=== PATIENT | female | born 2000 | race American Indian/Alaskan Native ===

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

== ENCOUNTER 2020-11-23 21:21 | Outpatient (CLI) | payer MEDICAID ==
[2020-11-23 22:03] VITALS: BP 134/86
[2020-11-23 22:19] LABS: Bacteria,Urine 1+ /HPF (Negative); Bilirubin,Urine NEG (Negative); Blood,Urine NEG (Negative); Color,Urine Yellow (Yellow); Mucus,Urine 1+ /HPF; Urobilinogen,Urine < 2.0 mg/dL (<2.0)
--- NOTE | 2020-11-24 00:02 | Ultrasound Report ---
ULTRASOUND OBSTETRIC LIMITED ULTRASOUND BIOPHYSICAL PROFILE INDICATION / CLINICAL INFORMATION: Evaluate well-being. Postdates with contractions. Clinical Gestational Age (GA) in weeks.days: 40.1 TECHNIQUE: Transabdominal. COMPARISON: None available. FINDINGS: NUMBER: Single PRESENTATION: cephalic PLACENTA: anterior and free of the os. MATERNAL ADNEXA: No significant abnormality. AMNIOTIC FLUID VOLUME: normal AMNIOTIC FLUID INDEX (EARL) in cm (if measured): 9.2 ANATOMY: Detailed anatomic evaluation was not performed. MEASUREMENTS: - Biparietal Diameter = 9.4 cm = 38.5 weeks.days - Head Circumference = 34.87 cm = 40.4 weeks.days - Abdominal Circumference = 34.83 cm = 38.5 weeks.days - Femur Length = 7.69 cm = 39.2 weeks.days - Estimated Weight (in grams, if calculated): 3674 - Heart Rate (beats per minute): 131 ADDITIONAL FINDINGS: None. PERCENTILE ESTIMATED WEIGHT (if calculated): 53 AVERAGE ULTRASOUND AGE (AUA) in weeks.days = 39.2 BREATHING MOVEMENT = 2 GROSS BODY MOVEMENT = 2 TONE = 2 QUALITATIVE AMNIOTIC FLUID VOLUME = 2 TOTAL BIOPHYSICAL SCORE = 8/8 IMPRESSION: 1. Single intrauterine with AUA of 39.2 weeks.days 2. Biophysical profile score of 8/8. Signer Name: Carl Walker MD Signed: 11/23/2020 11:58 PM Workstation Name: [email or web address]
== END 2020-11-24 00:42 | disposition home or self-care (01) ==
LOC: TRG 21:21 → APU 21:27 → TRG 11-24 00:42
PROVIDERS: ATTEND Obstetrics & Gynecology
DX: Z34.93 Encounter for supervision of normal pregnancy, unspecified, third trimester (principal); Z3A.40 40 weeks gestation of pregnancy
CPT/HCPCS: 59025; 76815; 76816; 76819; 81001

== ENCOUNTER 2020-12-01 20:02 | Inpatient (IN) | payer BC, MEDICAID ==
[2020-12-01 21:17] LABS: Hematocrit 32.8 % (30.3-42.9); Hemoglobin 11.3 gm/dl (10.1-14.3); Mean Corpuscular HGB Conc 35 % (30-34); Mean Corpuscular Volume 86 fl (79-97); Platelet Count 252 K/mm3 (140-440); Red Blood Count 3.82 M/mm3 (3.65-5.03); Red Cell Distribution Width 13.9 % (13.2-15.2)
[2020-12-01] MEDS ORDERED: ePHEDrine SULFATE 50 MG/1 ML INJ IV PRN (21:36)
[2020-12-01] MEDS ORDERED: NALOXONE 0.4 MG/1 ML INJ IV PRN (21:36)
[2020-12-01] MEDS ORDERED: ACETAMINOPHEN 325 MG TAB PO PRN (21:36)
[2020-12-01] MEDS ORDERED: CARBOPROST TROMETHAMINE 250 MCG/1 ML INJ IM PRN (21:36)
[2020-12-01] MEDS ORDERED: TERBUTALINE 1 MG/1 ML INJ SUB-Q PRN (21:36)
[2020-12-01] MEDS ORDERED: fentaNYL 100 MCG/2 ML INJ IV PRN (21:36)
[2020-12-01] MEDS ORDERED: LIDOCAINE (2%) 20 MG/1 ML VIAL 20 ML MDV INFILTRATI ONE (21:36)
[2020-12-01] MEDS ORDERED: miSOPROStol 200 MCG TAB PR PRN (21:36)
[2020-12-01] MEDS ORDERED: OXYTOCIN 10 UNIT/1 ML INJ IM PRN (21:36)
[2020-12-01] MEDS ORDERED: MINERAL OIL 30 ML ORAL LIQD PO PRN (21:36)
[2020-12-01] MEDS ORDERED: METHYLERGONOVINE MALEATE 0.2 MG/ML VIAL IM PRN (21:36)
[2020-12-01] MEDS ORDERED: LOPERAMIDE 2 MG CAP PO PRN (21:36)
[2020-12-01] MEDS ORDERED: BUTORPHANOL 2 MG/1 ML INJ IV PRN (21:36)
[2020-12-01] MEDS ORDERED: ONDANSETRON 4 MG/2 ML INJ IV PRN (21:36)
[2020-12-01] MEDS ORDERED: OXYTOCIN DRIP 30 UNITS/500 ML BAG IV SCH ×2 (22:00)
[2020-12-01] MEDS ORDERED: DINOPROSTONE 10 MG VAG SUPP VG ONE (22:08)
[2020-12-01] MEDS ORDERED: ZOLPIDEM 5 MG TAB PO PRN (22:12)
[2020-12-01] MEDS: LACTATED RINGERS 1,000 ML IV SCH (23:16)
[2020-12-02] MEDS: LACTATED RINGERS 1,000 ML IV SCH ×4 (04:27→20:37)
[2020-12-02] MEDS: BUTORPHANOL 2 MG/1 ML INJ IV PRN ×2 (07:52→12:53)
--- NOTE | 2020-12-02 08:55 | History and Physical Report ---
History of Present Illness Date of examination: 12/02/20 Date of admission: 12/01/20 20:02 Chief complaint: IOL secondary to post dates History of present illness: 20yo at 41.3 wks, initiated care at 11.2 wks gestation. 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 She presents to [facility] on 12/01/20 for IOL secondary to post- dates. Reports +FM. Denies VB or LOF. Labs: A+, antibody negative; rubella immune; VDRL non-reactive; urine culture negative; HBsAg negtive; HSV-2 negative; Gc/Chlamydia/Trich negative; 1hr gtt - 100; GBS negative. Past History Past Medical History: no pertinent history Past Surgical History: no surgical history [employer] History: chlamydia (12/2019) Family/Genetic History: cancer Social history: single, lives with family, full code. denies: smoking, alcohol abuse, prescription drug abuse, IV drug use - Obstetrical History Expected Date of Delivery: 12/02/20 Actual Gestation: 40 Week(s) 0 Day(s) : 2 Para: 0 Hx # Term Pregnancies: 0 Number of Pregnancies: 0 Spontaneous Abortions: 1 Induced : 0 Number of Living Children: 0 Medications and Allergies Allergies Allergy/AdvReac Type Severity Reaction Status Date / Time No Known Allergies Allergy Verified 08/14/16 06:05 Home Medications Medication Instructions Recorded Confirmed Last Taken Type Vitamin 1 tab PO DAILY 12/01/20 12/01/20 1 Month Ago History ~11/01/20 Active Meds: Active Medications Acetaminophen (Acetaminophen 325 Mg Tab) 650 mg PO Q4H PRN PRN Reason: Pain, Mild (1-3) Butorphanol Tartrate (Butorphanol 2 Mg/1 Ml Inj) 2 mg IV Q2H PRN PRN Reason: Pain , Severe (7-10) Last Admin: 12/02/20 07:52 Dose: 2 mg Documented by: Butorphanol Tartrate (Butorphanol 2 Mg/1 Ml Inj) 1 mg IV Q2H PRN PRN Reason: Pain, Moderate(4-6) LABOR PAIN Carboprost Tromethamine (Carboprost Tromethamine 250 Mcg/1 Ml Inj) 250 mcg IM ONCE PRN PRN Reason: Uterine Bleeding Ephedrine Sulfate (Ephedrine Sulfate 50 Mg/1 Ml Inj) 10 mg IV Q2M PRN PRN Reason: Hypotension Fentanyl (Fentanyl 100 Mcg/2 Ml Inj) 100 mcg IV Q2H PRN PRN Reason: Pain,Severe (7-10) LABOR PAIN Oxytocin/Sodium Chloride (Pitocin/Ns 30 Unit/500ml) 30 units in 500 mls @ 2 mls/hr IV TITR KWAKU; Protocol Lactated Ringer's (Lactated Ringers) 1,000 mls @ 125 mls/hr IV DIRECT KWAKU Last Admin: 12/02/20 08:33 Dose: 125 mls/hr Documented by: Oxytocin/Sodium Chloride (Pitocin/Ns 30 Unit/500ml) 30 units in 500 mls @ 40 mls/hr IV TITR KWAKU; Protocol Loperamide HCl (Loperamide 2 Mg Cap) 2 mg PO ONCE PRN PRN Reason: give with Hemabate Methylergonovine Maleate (Methylergonovine Maleate 0.2 Mg/Ml Vial) 0.2 mg IM ONCE PRN PRN Reason: Uterine Bleeding Mineral Oil (Mineral Oil 30 Ml Oral Liqd) 30 ml PO QHS PRN PRN Reason: Constipation Misoprostol (Misoprostol 200 Mcg Tab) 800 mcg IA ONCE PRN PRN Reason: Uterine Bleeding Naloxone HCl (Naloxone 0.4 Mg/1 Ml Inj) 0.1 mg IV Q2MIN PRN PRN Reason: Res Rate </= 8 or 02 SAT < 92% Ondansetron HCl (Ondansetron 4 Mg/2 Ml Inj) 4 mg IV Q8H PRN PRN Reason: Nausea And Vomiting Oxytocin (Oxytocin 10 Unit/1 Ml Inj) 10 unit IM ONCE PRN PRN Reason: Uterine Bleeding Terbutaline Sulfate (Terbutaline 1 Mg/1 Ml Inj) 0.25 mg SUB-Q ONCE PRN PRN Reason: Hyperstimulation/Hypertonicity Zolpidem Tartrate (Zolpidem 5 Mg Tab) 10 mg PO ONCE PRN PRN Reason: Insomnia Review of Systems All systems: negative - Vital Signs Vital signs: Vital Signs Temp Resp 99.9 F H 18 12/01/20 20:44 12/01/20 20:44 Temp Pulse Resp BP Pulse Ox 98.3 F 91 H 20 116/70 94 12/02/20 08:15 12/02/20 08:46 12/02/20 08:15 12/02/20 08:46 12/02/20 08:45 - Physical Exam Breasts: Positive: normal Cardiovascular: Regular rate Lungs: Positive: Normal air movement Abdomen: Positive: other (gravid) Genitourinary (Female): Positive: normal external genitalia, normal perenium Vagina: Positive: normal moisture Uterus: Positive: enlarged (S=D) Extremities: Positive: normal Deep Tendon Reflex Grade: Normal +2 - Obstetrical FHR: category 2 Uterine Contraction Monitor Mode: External Cervical Dilatation: 2 (vertex) Cervical Effacement Percentage: 60 station: -3 Uterine Contraction Frequency (min): 2-4 Uterine Tone Measurement Phase: Resting Uterine Contraction Intensity: Mild Results Result Diagrams: 12/01/20 20:20 Abnormal lab results 12/01/20 Range/Units 20:20 MCHC 35 H (30-34) % All other labs normal. Assessment and Plan - Patient Problems (1) Encounter for induction of labor Current Visit: Yes Status: Acute Plan to address problem: Cervidil removed at 0830 May eat/shower if desired Anticipate (2) Post-dates Current Visit: Yes Status: Acute
--- NOTE | 2020-12-02 14:14 | Progress Note ---
Assessment and Plan - Patient Problems (1) Encounter for induction of labor Current Visit: Yes Status: Acute Plan to address problem: Genao bulb was inserted at 0900, fell out at 0946 SROM @ 0957, clear fluids Continue Pitocin titration as tolerated Pain meds as desired Anticipate (2) Post-dates Current Visit: Yes Status: Acute Subjective - Subjective Date of service: 12/02/20 Principal diagnosis: IOL; postdates Interval history: 20yo at 41.3 wks, initiated care at 11.2 wks gestation. 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 She presents to [facility] on 12/01/20 for IOL secondary to post- dates. Reports +FM. Denies VB or LOF. Labs: A+, antibody negative; rubella immune; VDRL non-reactive; urine culture negative; HBsAg negtive; HSV-2 negative; Gc/Chlamydia/Trich negative; 1hr gtt - 100; GBS negative. Patient reports: loss of fluid (clear fluids), movement normal, contractions (getting painful), no vaginal bleeding Objective - Vital Signs Vital Signs: Vital Signs - 12hr 12/02/20 12/02/20 12/02/20 02:13 02:18 02:23 Temperature Pulse Rate 88 81 88 Respiratory Rate Blood Pressure O2 Sat by Pulse 97 96 98 Oximetry 12/02/20 12/02/20 12/02/20 02:28 02:33 02:38 Temperature Pulse Rate 89 86 88 Respiratory Rate Blood Pressure O2 Sat by Pulse 98 97 98 Oximetry 12/02/20 12/02/20 12/02/20 02:43 02:58 03:03 Temperature Pulse Rate 85 90 85 Respiratory Rate Blood Pressure O2 Sat by Pulse 100 100 99 Oximetry 12/02/20 12/02/20 12/02/20 03:08 03:13 03:18 Temperature Pulse Rate 84 84 84 Respiratory Rate Blood Pressure O2 Sat by Pulse 99 98 98 Oximetry 12/02/20 12/02/20 12/02/20 03:20 03:23 03:28 Temperature 97.9 F Pulse Rate 87 85 Respiratory Rate Blood Pressure O2 Sat by Pulse 98 97 Oximetry 12/02/20 12/02/20 12/02/20 03:33 03:38 03:43 Temperature Pulse Rate 88 89 92 H Respiratory Rate Blood Pressure O2 Sat by Pulse 97 97 97 Oximetry 12/02/20 12/02/20 12/02/20 03:48 03:53 03:58 Temperature Pulse Rate 86 90 88 Respiratory Rate Blood Pressure O2 Sat by Pulse 98 99 98 Oximetry 12/02/20 12/02/20 12/02/20 04:03 04:08 04:13 Temperature Pulse Rate 87 91 H 86 Respiratory Rate Blood Pressure O2 Sat by Pulse 99 98 97 Oximetry 12/02/20 12/02/20 12/02/20 04:18 04:23 04:32 Temperature Pulse Rate 86 92 H 97 H Respiratory Rate Blood Pressure O2 Sat by Pulse 97 98 96 Oximetry 12/02/20 12/02/20 12/02/20 04:35 04:37 04:42 Temperature Pulse Rate 88 85 87 Respiratory Rate Blood Pressure 120/61 O2 Sat by Pulse 96 96 Oximetry 12/02/20 12/02/20 12/02/20 04:47 04:52 04:57 Temperature Pulse Rate 88 85 85 Respiratory Rate Blood Pressure O2 Sat by Pulse 96 97 96 Oximetry 12/02/20 12/02/20 12/02/20 05:02 05:07 05:12 Temperature Pulse Rate 94 H 84 95 H Respiratory Rate Blood Pressure O2 Sat by Pulse 97 95 95 Oximetry 12/02/20 12/02/20 12/02/20 05:17 05:22 05:27 Temperature Pulse Rate 97 H 92 H 91 H Respiratory Rate Blood Pressure O2 Sat by Pulse 96 96 95 Oximetry 12/02/20 12/02/20 12/02/20 05:32 05:37 05:50 Temperature Pulse Rate 97 H 96 H 88 Respiratory Rate Blood Pressure O2 Sat by Pulse 97 96 97 Oximetry 12/02/20 12/02/20 12/02/20 05:55 06:00 06:05 Temperature Pulse Rate 89 90 92 H Respiratory Rate Blood Pressure O2 Sat by Pulse 98 98 98 Oximetry 12/02/20 12/02/20 12/02/20 06:10 06:15 06:25 Temperature Pulse Rate 93 H 96 H 93 H Respiratory Rate Blood Pressure O2 Sat by Pulse 98 98 97 Oximetry 12/02/20 12/02/20 12/02/20 06:30 06:35 06:40 Temperature Pulse Rate 90 93 H 88 Respiratory Rate Blood Pressure O2 Sat by Pulse 98 95 95 Oximetry 12/02/20 12/02/20 12/02/20 06:45 06:50 06:55 Temperature Pulse Rate 95 H 93 H 88 Respiratory Rate Blood Pressure O2 Sat by Pulse 97 96 96 Oximetry 12/02/20 12/02/20 12/02/20 07:00 07:01 07:05 Temperature 99.8 F H Pulse Rate 99 H 87 Respiratory 21 Rate Blood Pressure O2 Sat by Pulse 96 96 Oximetry 12/02/20 12/02/20 12/02/20 07:10 07:15 07:20 Temperature Pulse Rate 91 H 86 89 Respiratory Rate Blood Pressure O2 Sat by Pulse 96 96 96 Oximetry 12/02/20 12/02/20 12/02/20 07:25 07:39 07:44 Temperature Pulse Rate 90 91 H 85 Respiratory Rate Blood Pressure O2 Sat by Pulse 97 98 98 Oximetry 12/02/20 12/02/20 12/02/20 07:49 07:51 07:54 Temperature Pulse Rate 90 85 84 Respiratory Rate Blood Pressure 131/72 O2 Sat by Pulse 98 97 Oximetry 12/02/20 12/02/20 12/02/20 07:59 08:04 08:09 Temperature Pulse Rate 93 H 92 H 91 H Respiratory Rate Blood Pressure O2 Sat by Pulse 97 94 96 Oximetry 12/02/20 12/02/20 12/02/20 08:14 08:15 08:19 Temperature 98.3 F Pulse Rate 94 H 92 H 94 H Respiratory 20 Rate Blood Pressure O2 Sat by Pulse 95 94 96 Oximetry 12/02/20 12/02/20 12/02/20 08:20 08:24 08:25 Temperature Pulse Rate 92 H 91 H 95 H Respiratory Rate Blood Pressure O2 Sat by Pulse 94 96 94 Oximetry 12/02/20 12/02/20 12/02/20 08:29 08:31 08:34 Temperature Pulse Rate 94 H 90 90 Respiratory Rate Blood Pressure O2 Sat by Pulse 97 94 93 Oximetry 12/02/20 12/02/20 12/02/20 08:39 08:44 08:45 Temperature Pulse Rate 91 H 95 H 96 H Respiratory Rate Blood Pressure O2 Sat by Pulse 94 95 94 Oximetry 12/02/20 12/02/20 12/02/20 08:46 08:49 08:52 Temperature Pulse Rate 91 H 90 91 H Respiratory Rate Blood Pressure 116/70 O2 Sat by Pulse 95 94 Oximetry 12/02/20 12/02/20 12/02/20 08:54 09:00 09:05 Temperature Pulse Rate 90 87 91 H Respiratory Rate Blood Pressure O2 Sat by Pulse 95 100 99 Oximetry 12/02/20 12/02/20 12/02/20 09:10 09:15 09:20 Temperature Pulse Rate 107 H 90 92 H Respiratory Rate Blood Pressure O2 Sat by Pulse 95 96 95 Oximetry 12/02/20 12/02/20 12/02/20 09:25 10:06 10:07 Temperature 98.5 F Pulse Rate 92 H 90 Respiratory 20 Rate Blood Pressure O2 Sat by Pulse 98 98 Oximetry 12/02/20 12/02/20 12/02/20 10:11 10:13 10:16 Temperature Pulse Rate 86 86 90 Respiratory Rate Blood Pressure 129/78 O2 Sat by Pulse 99 99 Oximetry 12/02/20 12/02/20 12/02/20 10:21 10:26 10:31 Temperature Pulse Rate 90 91 H 89 Respiratory Rate Blood Pressure O2 Sat by Pulse 97 98 98 Oximetry 12/02/20 12/02/20 12/02/20 10:36 10:41 10:46 Temperature Pulse Rate 86 88 89 Respiratory Rate Blood Pressure 115/64 O2 Sat by Pulse 97 97 98 Oximetry 12/02/20 12/02/20 12/02/20 10:51 10:56 11:01 Temperature Pulse Rate 87 86 75 Respiratory Rate Blood Pressure O2 Sat by Pulse 98 97 83 L Oximetry 12/02/20 12/02/20 12/02/20 11:06 11:11 11:16 Temperature Pulse Rate 86 90 82 Respiratory Rate Blood Pressure O2 Sat by Pulse 98 98 97 Oximetry 12/02/20 12/02/20 12/02/20 11:21 11:26 11:31 Temperature Pulse Rate 84 83 80 Respiratory Rate Blood Pressure O2 Sat by Pulse 98 99 97 Oximetry 12/02/20 12/02/20 12/02/20 11:36 11:41 11:46 Temperature Pulse Rate 81 96 H 91 H Respiratory Rate Blood Pressure O2 Sat by Pulse 97 99 98 Oximetry 12/02/20 12/02/20 12/02/20 11:47 11:53 11:58 Temperature Pulse Rate 92 H 86 90 Respiratory Rate Blood Pressure 132/89 O2 Sat by Pulse 98 99 Oximetry 12/02/20 12/02/20 12/02/20 12:03 12:08 12:13 Temperature Pulse Rate 89 88 86 Respiratory Rate Blood Pressure O2 Sat by Pulse 99 99 99 Oximetry 12/02/20 12/02/20 12/02/20 12:18 12:23 12:28 Temperature 98.9 F Pulse Rate 90 88 88 Respiratory 16 Rate Blood Pressure 129/84 O2 Sat by Pulse 100 99 98 Oximetry 12/02/20 12/02/20 12/02/20 12:33 12:38 12:43 Temperature Pulse Rate 87 86 87 Respiratory Rate Blood Pressure O2 Sat by Pulse 98 97 98 Oximetry 12/02/20 12/02/20 12/02/20 12:46 12:48 12:53 Temperature Pulse Rate 87 88 85 Respiratory Rate Blood Pressure 127/77 O2 Sat by Pulse 97 98 Oximetry 12/02/20 12/02/20 12/02/20 12:58 13:02 13:03 Temperature Pulse Rate 89 92 H 90 Respiratory Rate Blood Pressure O2 Sat by Pulse 98 94 92 Oximetry 12/02/20 12/02/20 12/02/20 13:08 13:09 13:13 Temperature Pulse Rate 93 H 94 H 93 H Respiratory Rate Blood Pressure O2 Sat by Pulse 95 93 96 Oximetry 12/02/20 12/02/20 12/02/20 13:18 13:23 13:28 Temperature Pulse Rate 94 H 93 H 93 H Respiratory Rate Blood Pressure O2 Sat by Pulse 96 96 95 Oximetry 12/02/20 12/02/20 12/02/20 13:33 13:38 13:43 Temperature Pulse Rate 94 H 84 86 Respiratory Rate Blood Pressure O2 Sat by Pulse 95 97 97 Oximetry 12/02/20 12/02/20 12/02/20 13:47 13:48 13:53 Temperature Pulse Rate 85 86 87 Respiratory Rate Blood Pressure 128/79 O2 Sat by Pulse 96 96 Oximetry - Exam Breasts: deferred Cardiovascular: Regular rate Lungs: Normal air movement FHR: category 1 Uterine Contraction Monitor Mode: External Cervical Dilatation: 6.5 (vertex) Cervical Effacement Percentage: 70 (Pitocin @ 4mu/min) station: -2 Uterine Contraction Frequency (min): 3-5 Uterine Contraction Pattern: Irregular Uterine Tone Measurement Phase: Resting Uterine Contraction Intensity: Moderate - Labs Labs: Abnormal Labs 12/01/20 20:20 MCHC 35 H Laboratory Results - last 24 hr 12/01/20 12/01/20 12/01/20 20:20 20:20 20:20 WBC 9.5 RBC 3.82 Hgb 11.3 Hct 32.8 MCV 86 MCH 30 MCHC 35 H RDW 13.9 Plt Count 252 Syphilis IgG Antibody Nonreactive Blood Type A POSITIVE Antibody Screen Negative
[2020-12-02] MEDS ORDERED: diphenhydrAMINE 50 MG/ML VIAL IV PRN (20:20)
[2020-12-02] MEDS ORDERED: ONDANSETRON 4 MG/2 ML INJ IV PRN (20:20)
[2020-12-02] MEDS ORDERED: NALOXONE 2 MG/2 ML INJ IV PRN (20:20)
[2020-12-02] MEDS ORDERED: ePHEDrine SULFATE 50 MG/1 ML INJ IV PRN (20:20)
[2020-12-02] MEDS ORDERED: LACTATED RINGERS 250 ML IV SOLN IV ONE (20:20)
[2020-12-02] MEDS ORDERED: diphenhydrAMINE 50 MG/ML VIAL IV ONE (20:47)
--- NOTE | 2020-12-02 21:05 | Anesthesia Consultation ---
Anesthesia Consult and Med Hx Date of service: 12/02/20 - Airway Anesthetic Teeth Evaluation: Good ROM Head & Neck: Adequate Mental/Hyoid Distance: Adequate Mallampati Class: Class II Intubation Access Assessment: Probably Good - Pulmonary Exam CTA: Yes - Cardiac Exam Cardiac Exam: RRR - Pre-Operative Health Status ASA Pre-Surgery Classification: ASA2 Proposed Anesthetic Plan: Epidural - Pulmonary Hx Smoking: No Hx Asthma: No Hx Sleep Apnea: No - Cardiovascular System Hx Hypertension: No Hx Heart Attack/AMI: No Hx Angina: No - Central Nervous System Hx Seizures: No Hx Psychiatric Problems: No - Gastrointestinal Hx Gastroesophageal Reflux Disease: No - Endocrine Hx Renal Disease: No Hx Liver Disease: No Hx Insulin Dependent Diabetes: No Hx Non-Insulin Dependent Diabetes: No Hx Hypothyroidism: No Hx Hyperthyroidism: No - Hematic Hx Anemia: No Hx Sickle Cell Disease: No - Other Systems Hx Alcohol Use: No Hx Obesity: Yes
--- NOTE | 2020-12-02 21:09 | Progress Note ---
Labor Epidural - Labor Epidural Start Time: 20:38 Stop Time: 20:57 Performed by:: JHONATHAN FOOTE Procedure: Patient is requesting epidural for labor and pain. H&P, labs were reviewed. Patient IDed, H&P reviewed, all questions and concerns were answered, and consent was signed. Timeout was performed at bedside. Patient in sitting position. Sterile prep and drape was performed. 3ml of 1% lidocaine skin wheal at L[3]- L [4]. 18-gauge Christina epidural needle was advanced to loss of resistance with air technique 7.5cm. Negative CSF negative blood. Patient stated she felt a pop/parathesia, but sensation went away. Unable to advance epidural catheter, bevel turned 180 degrees and still unable to advance catheter. 3ml of 1% lidocaine skin wheal at L[2]- L [3]. 18-gauge Christina epidural needle was advanced to loss of resistance with air technique 7cm. Negative CSF negative blood. Epidural catheter advanced to 12cm [negative] Aspiration [negative] test dose. Sterile dressing applied. Patient tolerated procedure.
[2020-12-02] MEDS: fentaNYL-BUPIV 2 MCG/ML-0.125% 200 MCG/100 ML BAG EPIDURAL SCH (21:33)
[2020-12-03] MEDS: LACTATED RINGERS 1,000 ML IV SCH (01:08)
[2020-12-03] MEDS ORDERED: ACETAMINOPHEN 325 MG TAB PO ONE (01:37)
[2020-12-03] MEDS ORDERED: GENTAMICIN IV SCH (01:45)
[2020-12-03] MEDS ORDERED: SODIUM CHLORIDE 0.9% IV SCH (01:45)
[2020-12-03] MEDS ORDERED: GENTAMICIN/NS 120MG/100ML 120 MG/100 ML BAG IV SCH (02:00)
[2020-12-03] MEDS ORDERED: AMPICILLIN/NS 2 GM/100 ML 2 GM/100 ML BAG IV SCH (02:00)
--- NOTE | 2020-12-03 03:30 | Event Note ---
Date: 12/03/20 At bedside in discussion with patient. Progress reviewed. Mechanical dilation to 6cm. Rupture noted ~930am. No significant change in cervical dilation since removal of catheter. Fever documented 12/03~0115 with tachycardia. Chorioamnionitis diagnosed-ampicillin and gentamicin initiated. Cervix 7/60-70/-2 FHR:150 Variability:moderate Accelerations:15x15 Decelerations:none Contractions:q2-3 IOL: -now 18hrs post rupture without significant change since mechanical dilation - delivery offered, r/b/a/i reviewed at length. All questions answered, patient expressed understanding. -Cesaran delivery declined at this time, desires reassessment ~6am, if unchanged will rediscuss option of delivery at that time, amenable to earlier delivery for maternal/ indications -will continue to monitor closely Chorioamnionitis: -continue ampicillin/gentamicin as ordered.
[2020-12-03] MEDS: fentaNYL-BUPIV 2 MCG/ML-0.125% 200 MCG/100 ML BAG EPIDURAL SCH (04:54)
--- NOTE | 2020-12-03 08:13 | Procedure Note ---
OB Delivery Note - Delivery Date of Delivery: 12/03/20 (0731) Surgeon: MELODY WEST Dot Compliance Specialist: BRIONNA VELASQUEZ (CN) Estimated blood loss: other (QBL - 575 mls) - Vaginal Delivery presentation: vertex Delivery position: OA Intrapartum events: prolonged labor- > = 20hr Delivery induction: none Delivery augmentation: rupture of membranes (SROM - clear at 0957 on 12/02/20) Delivery monitor: external FHT, external uterine Route of delivery: Delivery placenta: spontaneous (0744, gutierrez) Delivery cord: 3 umbilical vessels Episiotomy: none Delivery laceration: none Anesthesia: epidural Delivery comments: of viable, crying male , placed directly to maternal abdomen. Cord double clamped, cut by FOB after 2 mins. Placenta spontaneously delivered, disposed. Uterus firm @ U-2, hemostasis maintained. Perineum intact. Cytotec 800mcg placed per rectum for prophylaxis. Mother and baby safe, stable and left in care of RN. - Infant A at 1 minute: 8 at 5 minutes: 9 Infant Gender: Male (Weight: 3689 gms (8lbs 2 ozs) 20 inches)
[2020-12-03] MEDS ORDERED: PROMETHAZINE 25 MG TAB PO PRN (08:30)
[2020-12-03] MEDS ORDERED: diphenhydrAMINE 25 MG CAP PO PRN (08:30)
[2020-12-03] MEDS ORDERED: WITCH HAZEL/ GLYCERIN PAD TP PRN (08:30)
[2020-12-03] MEDS ORDERED: LANOLIN/ZINC/DIMETHICONE (LANSINOH) 7 GM TP PRN (09:00)
[2020-12-03] MEDS: PRENATAL VIT27-FE FUMARATE-FOLIC ACID VIT TAB PO SCH (10:13)
[2020-12-03] MEDS: IBUPROFEN 600 MG TAB PO SCH ×3 (10:14→21:00)
[2020-12-03 19:01] LABS: Hematocrit 28.9 % (30.3-42.9); Hemoglobin 9.8 gm/dl (10.1-14.3)
[2020-12-03] MEDS ORDERED: ACETAMINOPHEN 325 MG TAB PO PRN (21:03)
[2020-12-03] MEDS ORDERED: MAGNESIUM HYDROXIDE (MOM) ORAL LIQD UDC PO PRN (22:00)
[2020-12-04] MEDS: IBUPROFEN 600 MG TAB PO SCH ×3 (05:32→16:47)
--- NOTE | 2020-12-04 07:51 | Progress Note ---
Assessment and Plan - Patient Problems (1) Headache Current Visit: Yes Status: Acute Plan to address problem: will attempt use of fiorcet for headache anesthesia eval if not improved Subjective - Subjective Date of service: 12/04/20 Principal diagnosis: IOL; postdates Interval history: Patient complains of headache not relieved with tylenol. Improved with lying down. Blood pressures remain normal Patient reports: appetite normal, voiding normally, pain well controlled, ambulating normally Objective - Vital Signs Latest vital signs: Vital Signs Temp Pulse Resp BP BP Pulse Ox 12/04/20 01:57 97.8 F 84 20 106/54 95 12/03/20 22:00 97.7 F 85 20 121/79 97 12/03/20 17:15 16 12/03/20 16:00 98.2 F 96 H 18 128/81 12/03/20 12:53 98 F 70 18 112/63 12/03/20 10:14 16 12/03/20 09:15 99 F 104 H 16 134/69 96 12/03/20 08:27 106 H 98 12/03/20 08:22 106 H 98 12/03/20 08:17 111 H 97 12/03/20 08:12 108 H 97 12/03/20 08:11 114 H 123/62 12/03/20 08:07 98.4 F 108 H 97 12/03/20 08:02 122 H 96 12/03/20 07:57 107 H 98 12/03/20 07:52 111 H 97 Intake and Output 12/03/20 12/04/20 12/04/20 22:59 06:59 14:59 Intake Total 120 360 Output Total 400 Balance -280 360 Intake: Oral 120 Intake, Free Water 360 Output: Urine 400 Void 400 Other: Total, Intake Amount 120 Total, Output Amount 400 # Voids Void 1 - Labs Labs: Abnormal lab results 12/03/20 Range/Units 18:30 Hgb 9.8 L (10.1-14.3) gm/dl Hct 28.9 L (30.3-42.9) %
[2020-12-04] MEDS: BUTALB/ACETAMINOPHEN/CAFFEINE TAB PO PRN ×2 (08:38→22:38)
--- NOTE | 2020-12-04 08:44 | Post Anesthesia Evaluation ---
- Post Anesthesia Evaluation Patient Participated: Yes Airway Patent: Yes Stable Respiratory Function: Yes Nausea/Vomiting: No Temp > 96.8F: Yes Pain Manageable: Yes Adequeate Hydration: Yes Anesthesia Complications: No Block Receding Appropriately: Yes
--- NOTE | 2020-12-04 08:47 | Progress Note ---
Subjective Date of service: 12/04/20 Principal diagnosis: headache Interval history: Consulted to see patient for possible PDPH. Patient sitting up in bed with lights on/blinds open. States stiffness in neck, headache improved lying flat, but able to walk to bathroom. Denies fevers S&S infection. Discussed likely tension headache. RN giving patient fiorcet at the time of the exam. Will also order PRN muscle relaxant. If neither improves, will consider treatment for PDPH but at this time that seems least likely diagnosis. Objective - Constitutional Vitals: Vital Signs - 12hr 12/03/20 12/04/20 22:00 01:57 Temperature 97.7 F 97.8 F Pulse Rate 85 84 Respiratory 20 20 Rate Blood Pressure 121/79 106/54 O2 Sat by Pulse 97 95 Oximetry - Labs CBC & Chem 7: 12/03/20 18:30 Labs: Abnormal lab results 12/03/20 Range/Units 18:30 Hgb 9.8 L (10.1-14.3) gm/dl Hct 28.9 L (30.3-42.9) %
[2020-12-04] MEDS: PRENATAL VIT27-FE FUMARATE-FOLIC ACID VIT TAB PO SCH (10:44)
[2020-12-04] MEDS: METAXALONE 800 MG TAB PO PRN ×2 (12:35→22:38)
[2020-12-05] MEDS: IBUPROFEN 600 MG TAB PO SCH ×2 (00:41→05:48)
[2020-12-05] MEDS: BUTALB/ACETAMINOPHEN/CAFFEINE TAB PO PRN ×2 (03:04→11:14)
[2020-12-05] MEDS: METAXALONE 800 MG TAB PO PRN (05:48)
[2020-12-05 09:05] VITALS: BP 113/69
--- NOTE | 2020-12-05 09:14 | Progress Note ---
Subjective Date of service: 12/05/20 Principal diagnosis: headache Interval history: Pt requested to speak with anesthesia re: headache. Pt sitting up in bed with lights on feeding baby. States muscle relaxants have helped her back stiffness, but still with neck stiffness and headache that fiorcet is not helping. States headache is better when lying down. Denies S&S infection. Discussed cause of post-dural puncture headache and post- headache. Willing to treat this as if pdph due to orthostatic nature, and described blood patch and neostigmine/atropine infusions. Pt does not wish to proceed at this time and wishes to talk to admitting about migraine treatment. Objective - Constitutional Vitals: Vital Signs - 12hr 12/05/20 12/05/20 00:45 09:00 Temperature 97.9 F 97.9 F Pulse Rate 68 79 Respiratory 20 18 Rate Blood Pressure 110/55 113/69 [Right] O2 Sat by Pulse 98 98 Oximetry - Labs CBC & Chem 7: 12/03/20 18:30
--- NOTE | 2020-12-05 11:01 | Progress Note ---
Assessment and Plan - Patient Problems (1) Headache Current Visit: Yes Status: Acute Plan to address problem: discharge home Subjective - Subjective Date of service: 12/05/20 Principal diagnosis: headache Interval history: Patient reports improvement in her headache with medication. Patient evaluated by anesthesia. Blood pressure remains normal Patient reports: appetite normal, voiding normally, pain well controlled : doing well Objective - Vital Signs Latest vital signs: Vital Signs Temp Pulse Resp BP BP Pulse Ox 12/05/20 09:00 97.9 F 79 18 113/69 98 12/05/20 00:45 97.9 F 68 20 110/55 98 12/04/20 17:04 97.9 F 70 18 111/75 97 12/04/20 11:14 97.5 F L 77 18 135/87 97 Intake and Output 12/04/20 12/05/20 12/05/20 22:59 06:59 14:59 Intake Total 240 480 Balance 240 480 Intake: Oral 240 480 Other: Total, Intake Amount 240 120 # Voids Void 1 1
--- NOTE | 2020-12-05 11:03 | Discharge Summary ---
Providers - Providers Date of Admission: 12/01/20 20:02 Date of discharge: 12/05/20 Attending physician: MELODY WEST 12/03/20 08:05 Consult to Psychologist Engineering [CONS] Routine Reason For Exam: assistance with , SNS 12/04/20 07:50 Consult to Anesthesiology [CONS] Urgent Consulting Provider: HELIO CANNON Reason For Exam: C/O headache unrelieved by pain medication. Primary care physician: MELODY WEST Hospitalization Reason for admission: induction of labor Delivery: Discharge diagnosis: IUP at term delivered Hospital course: Patient IOL for post dates. Had . complicated by headache Condition at discharge: Good Disposition: DC-01 TO HOME OR SELFCARE - Discharge Diagnoses (1) Headache Status: Acute Plan - Discharge Medications Prescriptions: Butalbit/Acetamin/Caff/Codeine [Fioricet/Codeine [id number]] 1 cap PO Q8HR PRN #15 cap PRN Reason: Headache Ibuprofen [Motrin] 800 mg PO Q8HR PRN #30 tablet PRN Reason: Pain , Severe (7-10) - Provider Discharge Summary Activity: no sex for 6 weeks, no heavy lifting 4 weeks, no strenuous exercise Diet: routine Instructions: routine Additional instructions: [] Smoking cessation referral if applicable(refer to patient education folder for contact #) [] Refer to [facility] Booklet Call your doctor immediately for: * Fever > 100.5 * Heavy vaginal bleeding ( >1 pad per hour) * Severe persistent headache * Shortness of breath * Reddened, hot, painful area to leg or breast * schedule visit in 4 weeks - Follow up plan
[2020-12-05] MEDS: PRENATAL VIT27-FE FUMARATE-FOLIC ACID VIT TAB PO SCH (11:14)
== END 2020-12-05 15:00 | disposition home or self-care (01) | DRG 775 ==
LOC: LD 20:02 → OB 12-03 09:11
PROVIDERS: ADMIT Obstetrics & Gynecology; ATTEND Obstetrics & Gynecology
PROC: 3E0R3BZ Introduction of Anesthetic Agent into Spinal Canal, Percutaneous Approach (ICD-10-PCS; 2020-12-02)
PROC: 00HU33Z Insertion of Infusion Device into Spinal Canal, Percutaneous Approach (ICD-10-PCS; 2020-12-02)
PROC: 10E0XZZ Delivery of Products of Conception, External Approach (ICD-10-PCS; principal; 2020-12-03)
DX: O48.0 Post-term pregnancy (principal); Z37.0 Single live birth; O63.9 Long labor, unspecified; Z3A.41 41 weeks gestation of pregnancy; O99.02 Anemia complicating childbirth; D64.9 Anemia, unspecified; O99.214 Obesity complicating childbirth; E66.9 Obesity, unspecified; O41.1230 Chorioamnionitis, third trimester, not applicable or unspecified; O89.4 Spinal and epidural anesthesia-induced headache during the puerperium; Z20.822 Contact with and (suspected) exposure to COVID-19; U07.1 COVID-19
CPT/HCPCS: 36415; 59200; 85014; 85018; 85027; 86592; 86850; 86900; 86901; G0378; J0290; J0595; J1200; J1580; J2590; J7120; U0003